=== PATIENT | male | born 1930 | race Two or more races ===

== ENCOUNTER 2017-12-07 06:05 | Day surgery (SDC) | payer MEDICARE, OTHER ==
[2017-12-07] MEDS ORDERED: CYCLOPENTOLATE 1% OPHT DROP 2 ML BOTTLE ONE (06:35)
[2017-12-07] MEDS ORDERED: FLURBIPROFEN 0.03% OPHT DROP 2.5 ML BOTTLE ONE (06:35)
[2017-12-07] MEDS ORDERED: CIPROFLOXACIN 0.3% OPHT DROP 2.5 ML BOTTLE ONE (06:35)
[2017-12-07] MEDS ORDERED: TROPICAMIDE 1% OPHT DROP 3 ML BOTTLE ONE (06:35)
[2017-12-07] MEDS ORDERED: PHENYLEPHRINE 2.5% OPHT DROP 2 ML BOTTLE ONE (06:36)
[2017-12-07] MEDS ORDERED: [UNRECOGNIZED DRUG - OTHER] IO ONE ×2 (07:00)
[2017-12-07] MEDS ORDERED: TIMOLOL MALEATE 0.5% OPHT DROP 5 ML BOTTLE ONE (07:02)
[2017-12-07] MEDS ORDERED: TETRACAINE HCL 0.5% OPHT DROP 2 ML BOTTLE ONE (07:02)
[2017-12-07] MEDS ORDERED: BALANCED SALT IRRIG SOLN COMB2 15 ML IRRIG.SOLN ONE (07:02)
[2017-12-07] MEDS ORDERED: MOXIFLOXACIN HCL 3 ML OPHT DROPS ONE (07:02)
[2017-12-07] MEDS ORDERED: ACETYLCHOLINE CHLORIDE 1% OPHT 1 EA KIT ONE (07:02)
[2017-12-07] MEDS ORDERED: NEO/POLYMYX B/DEXAME OPHT OINT 3.5 GM TUBE ONE (07:02)
[2017-12-07] MEDS ORDERED: HYALURONIDASE,OVINE 200 UNITS/ML VIAL ONE (07:03)
[2017-12-07] MEDS ORDERED: HYALURONATE SODIUM 12.8 MG/0.8 ML DISP.SYRIN ONE (07:03)
[2017-12-07] MEDS ORDERED: HYALURONATE SODIUM 8.5 MG/0.85 ML DISP.SYRIN ONE (07:03)
[2017-12-07] MEDS ORDERED: BUPIVACAINE PF 0.5% 30 ML VIAL ONE (07:03)
[2017-12-07] MEDS ORDERED: TRYPAN BLUE 0.5 ML DISP.SYRIN ONE (07:05)
[2017-12-07] MEDS ORDERED: LIDOCAINE-MPF 2% 5 ML VIAL ONE (07:10)
== END 2017-12-07 10:10 ==
LOC: DS 06:05
PROVIDERS: ATTEND Ophthalmology
DX: H26.9 Unspecified cataract (principal); Z53.9 Procedure and treatment not carried out, unspecified reason; I10 Essential (primary) hypertension
CPT/HCPCS: A4663; J1580; J3471; J3490; J7120; J7321; Q9968